=== PATIENT | female | born 1930 | race Caucasian/White ===

== ENCOUNTER 2017-05-31 13:51 | Inpatient (IN) | payer OTHER ==
[~2017-05-31] VITALS: Ht 152.4 cm; Wt 87.6 kg
[~2017-05-31 13:51] MED LIST: ALPRAZOLAM0.25 M2 PO; ASPIRIN EC325 MG PO; AZOR PO; CELEBREX200 MG PO; Colace PO; ERGOCALCIF50000 UNIT PO; Ecotrin PO; Feosol PO; HYDROCODON-ACE1 EAC7 PO; IRON325 M1 PO; KEFLEX500 MG PO; LEVOTHYROXINE75 MCG PO; LIDODERM 5% P1 PATCH TD; Levothroid,Synthroid PO; PRAVASTATIN SOD20 MG PO; Pravachol PO; SENNA-TIME S T1 EACH PO; Senokot S,Pericolace PO; THERAGRAN1 TABLET PO; TRAMADOL HCL50 MG PO; VALSARTAN160 MG PO; Vicodin,Norco 5/325 PO; Xanax PO; ZOFRAN ODT4 MG PO
[2017-05-31 17:42] VITALS: BP 136/58
[2017-05-31 18:52] LABS: BASOPHIL (%) 0.7 % (0-1); BASOPHIL COUNT 0.1 K/uL (0-0.1); EOSINOPHIL (%) 3.4 % (0-5); EOSINOPHIL COUNT 0.3 K/uL (0-0.3); HEMATOCRIT 36.1 % (36.0-46.0); IMMATURE GRANULOCYTE (%) 0.2 % (0.0-0.7); LYMPHOCYTE COUNT 2.1 K/uL (1.0-2.8); MCH 30.8 PG (29.0-34.0); MCHC 33.2 G/DL (30.0-36.0); MCV 92.8 FL (83-99); MONOCYTE (%) 6.8 % (3-12); MONOCYTE COUNT 0.6 K/uL (0-0.8); NEUTROPHIL (%) 63.9 % (45-76); NEUTROPHIL COUNT 5.4 K/uL (1.8-6.4); PLATELET COUNT 251 K/uL (156-360); RBC DIS.WIDTH-CV 12.3 % (11.8-14.6); RED BLOOD COUNT 3.89 M/uL (3.80-5.20); WHITE BLOOD COUNT 8.5 K/uL (4.1-10.2)
[2017-05-31 19:04] LABS: INTER. NORMALIZED RATIO 1.2
[2017-05-31 19:16] LABS: CHLORIDE 103 MEQ/L (99-109); CREATININE 0.9 MG/DL (0.6-1.3); GFR ESTIMATE (CALCULATED) > 59 mL/min/; GLUCOSE 104 mg/dL (70-99); POTASSIUM 4.2 MEQ/L (3.7-5.4); SODIUM 135 MEQ/L (136-147); UREA NITROGEN (BUN) 21 mg/dL (9-23)
[2017-05-31 19:23] VITALS: BP 146/113
[2017-05-31 23:30] VITALS: BP 151/70
[2017-06-01 04:13] VITALS: BP 130/58
[2017-06-01 08:10] VITALS: BP 187/77
[2017-06-01 11:45] VITALS: BP 149/68
[2017-06-01 17:51] VITALS: BP 169/73
[2017-06-01 20:10] VITALS: BP 166/80
[2017-06-01 23:30] VITALS: BP 168/73
[2017-06-02] VITALS (15 sets, daily range): BP systolic 127–195; BP diastolic 53–103
[2017-06-02 18:46] LABS: APPEARANCE CLEAR ((CLEAR)); BILIRUBIN NEGATIVE; BLOOD NEGATIVE; COLOR STRAW ((YELLOW)); GLUCOSE (STRIP) NEGATIVE; KETONES NEGATIVE; LEUKOCYTES MODERATE; NITRITE NEGATIVE; PROTEIN (STRIP) NEGATIVE; SPECIFIC GRAVITY 1.006 (1.000-1.030); UROBILINOGEN 0.2 MG/DL (0.2-1.0)
[2017-06-02 19:05] LABS: BACTERIA RARE /HPF; EPITHELIAL CELLS RARE /HPF; MUCUS TRACE /LPF; RED BLOOD CELLS 0-5 /HPF (0-5); UCUL ADDED? YES
[2017-06-03] VITALS (16 sets, daily range): BP systolic 133–183; BP diastolic 49–86
[2017-06-03 05:23] LABS: BASOPHIL (%) 0.2 % (0-1); EOSINOPHIL (%) 1.9 % (0-5); EOSINOPHIL COUNT 0.2 K/uL (0-0.3); HEMATOCRIT 39.3 % (36.0-46.0); IMMATURE GRANULOCYTE (%) 0.4 % (0.0-0.7); LYMPHOCYTE (%) 14.9 % (15-42); LYMPHOCYTE COUNT 1.9 K/uL (1.0-2.8); MCH 30.3 PG (29.0-34.0); MCHC 33.1 G/DL (30.0-36.0); MCV 91.6 FL (83-99); MONOCYTE (%) 5.8 % (3-12); MONOCYTE COUNT 0.7 K/uL (0-0.8); NEUTROPHIL (%) 76.8 % (45-76); NEUTROPHIL COUNT 9.6 K/uL (1.8-6.4); PLATELET COUNT 211 K/uL (156-360); RBC DIS.WIDTH-CV 11.9 % (11.8-14.6); RBC DIS.WIDTH-SD 39.9 % (39-53); RED BLOOD COUNT 4.29 M/uL (3.80-5.20); WHITE BLOOD COUNT 12.5 K/uL (4.1-10.2)
[2017-06-03 06:13] LABS: CHLORIDE 99 MEQ/L (99-109); CREATININE 0.9 MG/DL (0.6-1.3); GFR ESTIMATE (CALCULATED) > 59 mL/min/; GLUCOSE 120 mg/dL (70-99); SODIUM 135 MEQ/L (136-147); UREA NITROGEN (BUN) 16 mg/dL (9-23)
[2017-06-03 06:33] LABS: CREATINE KINASE 90 IU/L (1-294); MAGNESIUM 1.7 mg/dl (1.3-2.7); PHOSPHORUS 3.4 mg/dL (2.5-4.9); TOTAL CK 90 IU/L (1-294)
[2017-06-03 07:28] LABS: CK-MB 2.2 ng/mL (0.0-4.9); CKMB RELATIVE INDEX 2.4 (0.0-3.9)
[2017-06-03 07:50] LABS: TROP-I INTERPRETATION NEGATIVE; TROPONIN-I 0.04 ng/mL (0.0-0.30)
[2017-06-03] MEDS ORDERED: AZOR 5/20 MG1 TABLET PO (08:58)
[2017-06-03] MEDS ORDERED: TRAMADOL HCL50 MG PO (08:59)
[2017-06-03] MEDS ORDERED: MULTIVITAMIN1 EAC2 PO (08:59)
[2017-06-03] MEDS ORDERED: PROAIR HFA8.5 GM IH (08:59)
[2017-06-04 04:55] VITALS: BP 132/62
[2017-06-04 05:33] LABS: HEMATOCRIT 35.1 % (36.0-46.0); HEMOGLOBIN 11.7 G/DL (11.9-15.5); MCH 30.4 PG (29.0-34.0); MCHC 33.3 G/DL (30.0-36.0); MCV 91.2 FL (83-99); PLATELET COUNT 178 K/uL (156-360); RBC DIS.WIDTH-CV 11.9 % (11.8-14.6); RED BLOOD COUNT 3.85 M/uL (3.80-5.20); WHITE BLOOD COUNT 10.7 K/uL (4.1-10.2)
[2017-06-04 07:32] LABS: CHLORIDE 97 MEQ/L (99-109); GFR ESTIMATE (CALCULATED) 56 mL/min/; GLUCOSE 97 mg/dL (70-99); MAGNESIUM 1.8 mg/dl (1.3-2.7); PHOSPHORUS 3.1 mg/dL (2.5-4.9); POTASSIUM 4.2 MEQ/L (3.7-5.4); SODIUM 130 MEQ/L (136-147); UREA NITROGEN (BUN) 24 mg/dL (9-23)
[2017-06-04 07:48] VITALS: BP 152/70
[2017-06-04 17:31] VITALS: BP 138/65
[2017-06-04 20:01] VITALS: BP 153/68
[2017-06-04 23:45] VITALS: BP 148/72
[2017-06-05 05:03] VITALS: BP 151/68
[2017-06-05 08:47] VITALS: BP 117/65
[2017-06-05 15:27] VITALS: BP 113/74
[2017-06-05 21:21] VITALS: BP 139/64
[2017-06-06 00:56] VITALS: BP 141/67
[2017-06-06 05:35] VITALS: BP 132/62
[2017-06-06 08:46] VITALS: BP 142/89
[2017-06-06 11:26] VITALS: BP 136/89
[2017-06-06 17:23] VITALS: BP 139/75
[2017-06-06] MEDS ORDERED: AMLODIPINE BESYL5 MG PO (17:59)
[2017-06-06] MEDS ORDERED: ASPIR-LOW81 MG PO (17:59)
[2017-06-06] MEDS ORDERED: LOSARTAN POTAS100 MG PO (17:59)
[2017-06-06] MEDS ORDERED: BISAC-EVAC10 MG PR (18:00)
[2017-06-06] MEDS ORDERED: ALPRAZOLAM0.25 M2 PO (18:00)
[2017-06-06] MEDS ORDERED: TYLENOL REGULA325 MG PO (18:00)
[2017-06-06] MEDS ORDERED: DOCUSATE SODIU100 MG PO (18:00)
[2017-06-06] MEDS ORDERED: FAMOTIDINE20 MG PO (18:01)
[2017-06-06] MEDS ORDERED: SENNA PLUS TAB1 EACH PO (18:01)
[2017-06-06] MEDS ORDERED: Milk Of Magnesia,MOM PO (18:01)
== END 2017-06-06 20:57 | DRG 244 ==
LOC: 4EAST 13:51 → ENRESERV 13:53 → 4EAST 13:54 → ENRESERV 15:17 → 4WEST 17:09 → 4EAST 17:09 → ENRESERV 06-02 15:24 → 4WEST 06-02 15:36 → ENRESERV 06-03 14:27 → 4EAST 06-03 16:31
PROVIDERS: Internal Medicine; Internal Medicine Cardiovascular Disease; Surgery
DX: I44.1 Atrioventricular block, second degree (principal); F41.8 Other specified anxiety disorders; E78.5 Hyperlipidemia, unspecified; I11.9 Hypertensive heart disease without heart failure; R00.1 Bradycardia, unspecified; Z95.0 Presence of cardiac pacemaker; M83.8 Other adult osteomalacia; E03.9 Hypothyroidism, unspecified; E53.8 Deficiency of other specified B group vitamins; E11.9 Type 2 diabetes mellitus without complications; Z68.37 Body mass index [BMI] 37.0-37.9, adult; E66.9 Obesity, unspecified; Z96.659 Presence of unspecified artificial knee joint; Z79.899 Other long term (current) drug therapy; M19.90 Unspecified osteoarthritis, unspecified site; E55.9 Vitamin D deficiency, unspecified; I70.0 Atherosclerosis of aorta; Z80.9 Family history of malignant neoplasm, unspecified
CPT/HCPCS: 70490; 71045; 71250; 80048; 81003; 82550; 82553; 83735; 84100; 84484; 85025; 85027; 85610; 85652; 87086; 87641; 93005; 93306; C1892; C1894; C1898; J0690; J1170; J1885; J2250; J3010; S0020; S0028

== ENCOUNTER 2017-08-04 12:49 | Emergency (ER) | payer OTHER ==
[~2017-08-04] VITALS: Ht 160 cm; Wt 82.1 kg
[~2017-08-04 12:49] MED LIST changes: +AMLODIPINE BESYL5 MG PO; +ASPIR-LOW81 MG PO; +AZOR 5/20 MG1 TABLET PO; +BISAC-EVAC10 MG PR; +DOCUSATE SODIU100 MG PO; +FAMOTIDINE20 MG PO; +LOSARTAN POTAS100 MG PO; +MULTIVITAMIN1 EAC2 PO; +Milk Of Magnesia,MOM PO; +PROAIR HFA8.5 GM IH; +SENNA PLUS TAB1 EACH PO; +TYLENOL REGULA325 MG PO
[2017-08-04 13:30] LABS: HEMATOCRIT 37.6 % (36.0-46.0); HEMOGLOBIN 12.6 G/DL (11.9-15.5); MCH 30.7 PG (29.0-34.0); MCHC 33.5 G/DL (30.0-36.0); MCV 91.7 FL (83-99); PLATELET COUNT 240 K/uL (156-360); RBC DIS.WIDTH-CV 12.8 % (11.8-14.6); RBC DIS.WIDTH-SD 42.7 % (39-53); WHITE BLOOD COUNT 16.8 K/uL (4.1-10.2)
[2017-08-04 13:46] LABS: CHLORIDE 102 mEq/L (99-109); POTASSIUM 4.1 mEq/L (3.7-5.4); SODIUM 136 mEq/L (136-147)
[2017-08-04 13:48] LABS: GLUCOSE 103 mg/dL (70-99)
[2017-08-04 13:49] LABS: TOTAL PROTEIN 7.6 g/dL (6.4-8.3)
[2017-08-04 13:50] LABS: TOTAL BILIRUBIN 0.6 mg/dL (0.0-1.0)
[2017-08-04 13:52] LABS: ALKALINE PHOSPHATASE 110 IU/L (3-129); CREATININE 0.9 mg/dL (0.6-1.3); GFR ESTIMATE (CALCULATED) > 59 mL/min/
[2017-08-04 13:53] LABS: UREA NITROGEN (BUN) 16 mg/dL (9-23)
[2017-08-04 13:54] LABS: AST (GOT) 20 IU/L (2-34)
[2017-08-04 13:55] LABS: ALT (GPT) 15 IU/L (3-49)
[2017-08-04 13:57] LABS: TROP-I INTERPRETATION NEGATIVE; TROPONIN-I < 0.01 ng/mL (0.0-0.30)
[2017-08-04 16:41] LABS: TROP-I INTERPRETATION NEGATIVE; TROPONIN-I < 0.01 ng/mL (0.0-0.30)
[2017-08-04 22:21] VITALS: BP 130/64
== END 2017-08-04 23:02 | disposition home or self-care (01) ==
LOC: EME → EDBD 12:49 → EME 23:02
PROVIDERS: Emergency Medicine Emergency Medical Services
DX: R07.9 Chest pain, unspecified (principal); F41.9 Anxiety disorder, unspecified; R05 Cough; I10 Essential (primary) hypertension; E78.5 Hyperlipidemia, unspecified; Z95.0 Presence of cardiac pacemaker; Z90.49 Acquired absence of other specified parts of digestive tract
CPT/HCPCS: 71045; 71275; 80053; 83880; 84484; 85027; 85379; 93005; 94640; 99281; 99285

== ENCOUNTER 2017-09-16 15:22 | Inpatient (IN) | payer OTHER ==
[~2017-09-16] VITALS: Ht 160 cm; Wt 80.3 kg
[2017-09-16 15:45] LABS: HEMATOCRIT 40.3 % (36.0-46.0); HEMOGLOBIN 13.4 G/DL (11.9-15.5); MCH 30.4 PG (29.0-34.0); MCHC 33.3 G/DL (30.0-36.0); MCV 91.4 FL (83-99); PLATELET COUNT 263 K/uL (156-360); RBC DIS.WIDTH-CV 12.9 % (11.8-14.6); RBC DIS.WIDTH-SD 43.9 % (39-53); RED BLOOD COUNT 4.41 M/uL (3.80-5.20); WHITE BLOOD COUNT 15.5 K/uL (4.1-10.2)
[2017-09-16 15:53] LABS: CHLORIDE 102 mEq/L (99-109); POTASSIUM 4.1 mEq/L (3.7-5.4); SODIUM 136 mEq/L (136-147)
[2017-09-16 15:55] LABS: GLUCOSE 110 mg/dL (70-99)
[2017-09-16 15:59] LABS: GFR ESTIMATE (CALCULATED) 56 mL/min/
[2017-09-16 16:00] LABS: UREA NITROGEN (BUN) 16 mg/dL (9-23)
[2017-09-16 16:07] LABS: TROP-I INTERPRETATION NEGATIVE; TROPONIN-I < 0.01 ng/mL (0.0-0.30)
[2017-09-16] MEDS ORDERED: METHOCARBAMOL500 MG PO (17:57)
[2017-09-16] MEDS ORDERED: AMLODIPINE-OLM1 EACH PO (17:58)
[2017-09-16] MEDS ORDERED: VENTOLIN HFA18 GM IH (18:04)
[2017-09-16] MEDS ORDERED: ADVIL,NUPRIN,M200 MG PO (18:08)
[2017-09-16] MEDS ORDERED: LO-DOSE ASPIRIN81 M2 PO (18:11)
[2017-09-16 21:13] VITALS: BP 139/72
[2017-09-16 23:13] VITALS: BP 123/59
[2017-09-17 00:25] LABS: TROP-I INTERPRETATION NEGATIVE; TROPONIN-I < 0.01 ng/mL (0.0-0.30)
[2017-09-17 07:00] VITALS: BP 126/58
[2017-09-17 08:47] LABS: TROP-I INTERPRETATION NEGATIVE; TROPONIN-I < 0.01 ng/mL (0.0-0.30)
[2017-09-17 11:20] VITALS: BP 137/59
[2017-09-17 15:15] VITALS: BP 120/58
[2017-09-17 19:36] VITALS: BP 148/68
[2017-09-17 22:42] VITALS: BP 107/58
[2017-09-18 03:35] VITALS: BP 132/63
[2017-09-18 06:55] VITALS: BP 112/55
[2017-09-18 10:45] VITALS: BP 116/59
[2017-09-18 15:52] VITALS: BP 157/69
[2017-09-18 20:03] VITALS: BP 137/63
[2017-09-18 22:35] VITALS: BP 117/58
[2017-09-19 03:45] VITALS: BP 142/74
[2017-09-19 06:40] VITALS: BP 135/61
[2017-09-19 16:05] VITALS: BP 135/61
[2017-09-19 17:29] VITALS: BP 153/65
[2017-09-19 19:10] VITALS: BP 138/63
[2017-09-20 00:29] VITALS: BP 132/62
[2017-09-20 05:08] VITALS: BP 140/69
[2017-09-20 08:00] VITALS: BP 159/70
[2017-09-20 12:00] VITALS: BP 136/63
[2017-09-20 16:00] VITALS: BP 147/67
[2017-09-20] MEDS ORDERED: NITROSTAT0.4 MG SL (19:53)
== END 2017-09-20 20:48 | disposition home or self-care (01) | DRG 286 ==
LOC: EME 15:22 → 5EAST 18:20 → 4EAST 18:20 → EDOF 18:20 → ENRESERV 18:59 → 5EAST 21:06 → ENRESERV 09-19 12:08 → 4EAST 09-19 12:11 → 2SOUTH 09-19 12:38 → ENRESERV 09-19 12:39 → 4EAST 09-19 16:15
PROVIDERS: Emergency Medicine; Internal Medicine
DX: I25.110 Atherosclerotic heart disease of native coronary artery with unstable angina pectoris (principal); J18.9 Pneumonia, unspecified organism; E78.5 Hyperlipidemia, unspecified; F32.9 Major depressive disorder, single episode, unspecified; I11.9 Hypertensive heart disease without heart failure; F40.240 Claustrophobia; F41.9 Anxiety disorder, unspecified; E03.9 Hypothyroidism, unspecified; E66.9 Obesity, unspecified; Z95.0 Presence of cardiac pacemaker; Z79.82 Long term (current) use of aspirin; Z68.31 Body mass index [BMI] 31.0-31.9, adult
CPT/HCPCS: 71046; 71275; 80048; 84484; 85027; 85379; 93005; 94640; 99202; 99281; 99284; C1760; C1769; C1887; C1894; J1644; J2250; J2270; J3010; J7040; J7120